=== PATIENT | male | born 1965 | race Caucasian/White ===

== ENCOUNTER 2017-09-24 10:01 | Inpatient (IN) | payer BC ==
[~2017-09-24] VITALS: Ht 182.9 cm; Wt 86.0 kg
[2017-09-24 12:55] VITALS: BP 140/86
[2017-09-24] MEDS ORDERED: ACETAMINOPHEN325 M1 PO (13:06)
[2017-09-24] MEDS ORDERED: BACITRACIN28.4 GM TP (13:07)
[2017-09-24] MEDS ORDERED: ASPIR 8181 M1 PO (13:07)
[2017-09-24] MEDS ORDERED: LOVENOX30 MG/0.3 SC (13:09)
[2017-09-24] MEDS ORDERED: MOTRIN600 MG PO (13:10)
[2017-09-24] MEDS ORDERED: GABAPENTIN300 MG PO (13:10)
[2017-09-24] MEDS ORDERED: LOPRESSOR25 MG PO (13:11)
[2017-09-24] MEDS ORDERED: ROXICODONE5 MG PO (13:12)
[2017-09-24] MEDS ORDERED: DAKIN'S473 ML TP (13:13)
[2017-09-24 15:32] VITALS: BP 116/68
[2017-09-25 00:25] VITALS: BP 108/52
[2017-09-25 05:05] VITALS: BP 117/76
[2017-09-25 06:23] LABS: HEMATOCRIT 33.6 % (38.0-50.0); HEMOGLOBIN 10.5 G/DL (12.5-16.6); MCHC 31.3 G/DL (30.0-36.0); MCV 92.8 FL (86-99); PLATELET COUNT 956 K/uL (156-360); RBC DIS.WIDTH-CV 14.2 % (11.8-14.6); RBC DIS.WIDTH-SD 48.2 % (39-53); RED BLOOD COUNT 3.62 M/uL (4.00-5.50)
[2017-09-25 06:49] LABS: ALBUMIN 3.4 G/DL (3.2-4.8); ALKALINE PHOSPHATASE 121 IU/L (3-129); ALT (GPT) 72 IU/L (3-49); AST (GOT) 19 IU/L (2-34); CHLORIDE 105 MEQ/L (99-109); GFR ESTIMATE (CALCULATED) > 59 mL/min/ (58.99-99999); GLUCOSE 100 mg/dL (70-99); POTASSIUM 5.3 MEQ/L (3.7-5.4); SODIUM 139 MEQ/L (136-147); TOTAL BILIRUBIN 0.4 MG/DL (0.0-1.0); TOTAL PROTEIN 5.9 G/DL (6.4-8.3); UREA NITROGEN (BUN) 29 mg/dL (9-23)
[2017-09-26 04:19] VITALS: BP 124/69
[2017-09-27 05:03] VITALS: BP 110/72
[2017-09-27 15:37] VITALS: BP 124/80
[2017-09-28 05:19] VITALS: BP 123/85
[2017-09-28] MEDS ORDERED: ROXICODONE5 MG PO (11:42)
[2017-09-28] MEDS ORDERED: GABAPENTIN300 MG PO (11:42)
[2017-09-28] MEDS ORDERED: THERAGRAN1 TABLET PO (11:42)
[2017-09-28] MEDS ORDERED: Milk Of Magnesia,MOM PO (11:42)
[2017-09-28 15:52] VITALS: BP 109/69
[2017-09-29 05:12] VITALS: BP 109/78
[2017-09-29] MEDS ORDERED: LOPRESSOR25 MG PO (10:10)
== END 2017-09-29 13:40 | DRG 560 ==
LOC: 3WEST 10:01 → ENPENDDIS 09-29 → 3WEST 09-29 13:40
PROVIDERS: Physical Medicine & Rehabilitation Pain Medicine
PROC: F07M0ZZ Range of Motion and Joint Mobility Treatment of Musculoskeletal System - Whole Body (ICD-10-PCS; principal; 2017-09-24)
DX: Z47.81 Encounter for orthopedic aftercare following surgical amputation (principal); Z89.612 Acquired absence of left leg above knee; I10 Essential (primary) hypertension; R26.9 Unspecified abnormalities of gait and mobility; I48.91 Unspecified atrial fibrillation; Z79.82 Long term (current) use of aspirin; Z79.899 Other long term (current) drug therapy; G89.18 Other acute postprocedural pain; Z87.891 Personal history of nicotine dependence; G54.6 Phantom limb syndrome with pain; S02.2XXD Fracture of nasal bones, subsequent encounter for fracture with routine healing; W23.0XXD Caught, crushed, jammed, or pinched between moving objects, subsequent encounter; D72.829 Elevated white blood cell count, unspecified; J98.4 Other disorders of lung; I48.0 Paroxysmal atrial fibrillation; D62 Acute posthemorrhagic anemia
CPT/HCPCS: 80053; 85027; 93005; 93306; 97110 GO; 97530 GP; J1650